=== PATIENT | male | born 1955 | race Two or more races ===

== ENCOUNTER 2020-05-26 07:53 | Inpatient (IN) | payer MEDICARE, MEDICAID ==
[~2020-05-26] VITALS: Ht 167.6 cm; Wt 56.0 kg
[2020-05-26] MEDS ORDERED: LIDOCAINE 2%HCL (LOCAL ANESTH.) INJ 20ML MDV ONE (08:36)
[2020-05-26] MEDS ORDERED: IODIXANOL 320MG/ML 100ML BTL IV ONE (08:37)
[2020-05-26] MEDS ORDERED: VERAPAMIL 2.5MG/ML INJ 2ML VIAL IV ONE (08:41)
[2020-05-26] MEDS ORDERED: ANGIOMAX 250 MG VIAL IV ONE (08:41)
[2020-05-26] MEDS ORDERED: HEPARIN SODIUM (PORCINE) 5000 UNITS/ML 1ML VIAL ONE (08:41)
[2020-05-26] MEDS ORDERED: SODIUM CHL 0.9% 0 ML ONE (08:42)
[2020-05-26] MEDS ORDERED: MIDAZOLAM HCL 1MG/1ML-2 ML VIAL ONE (08:42)
[2020-05-26] MEDS ORDERED: fentaNYL CITRATE 100 MCG/2 ML VL ONE (08:42)
[2020-05-26] MEDS ORDERED: hydrALAZINE HCL 20 MG/ML VL ONE (10:06)
[2020-05-26] MEDS ORDERED: hydrALAZINE HCL 20 MG/ML VL IV ONE (10:15)
[2020-05-26] MEDS ORDERED: MORPHINE SULF INJ 2 MG/ML SYRINGE 1ML IV PRN (10:30)
[2020-05-26] MEDS ORDERED: NITROGLYCERIN 0.4 MG SL TAB SL PRN (10:30)
[2020-05-26] MEDS ORDERED: ASPI-231 PO (12:29)
[2020-05-26] MEDS ORDERED: B-COTAB94 OR (12:29)
[2020-05-26] MEDS ORDERED: ATOR20TA PO (12:29)
[2020-05-26] MEDS ORDERED: CARV3.1240 PO (12:29)
[2020-05-26] MEDS ORDERED: SEVE800T8 PO (12:29)
[2020-05-26] MEDS ORDERED: SERT-160 PO (12:29)
[2020-05-26 12:49] VITALS: BP 181/76
[2020-05-26 13:27] VITALS: BP 181/76
[2020-05-26 13:35] LABS: Basophils # (auto) 0.1 10 ^3/uL (0-0.2); Eosinophils # (auto) 0.3 10 ^3/uL (0-0.8); Hemoglobin 13.2 g/dL (13.5-17.5); Monocytes # (auto) 0.7 10 ^3/uL (0-1.3); Nucleated Red Blood Cells % 0.1 %
[2020-05-26 13:37] LABS: Eosinophils % (auto) 3.5 % (0.0-7.0); Hematocrit 39.3 % (41.0-53.0); Lymphocytes # (auto) 1.7 10 ^3/uL (0.4-5.4); Lymphocytes % (auto) 22.5 % (10.0-50.0); Mean Corpuscular Hemoglobin 34.5 pg (28.0-32.0); Mean Corpuscular Hgb Conc. 33.6 g/dL (32.0-36.0); Mean Corpuscular Volume 102.7 fL (80.0-100.0); Monocytes % (auto) 9.2 % (0.0-12.0); Neutrophils # (auto) 4.7 10 ^3/uL (1.6-8.6); Neutrophils % (auto) 63.8 % (37.0-80.0); Platelet Count (auto) 109 10^3/uL (140-450); Red Blood Cells 3.82 10^6/uL (4.5-5.90); Red Cell Distribution Width 15.4 % (11.8-14.3); White Blood Cell 7.4 10^3/uL (4.4-10.8)
[2020-05-26 13:55] LABS: Albumin 3.7 g/dL (3.4-5.0); Calcium 7.7 mg/dL (8.5-10.1); Potassium 5.1 mmol/L (3.5-5.1)
[2020-05-26] MEDS: SODIUM ZIRCONIUM CYCL 10 GM PAK PO SCH ×2 (14:00→21:56)
[2020-05-26 14:06] LABS: BUN/Creatinine Ratio 7.4; Bilirubin, Total 0.4 mg/dL (0.2-1.0); Phosphorus 5.6 mg/dL (2.5-4.90); Total Protein 7.5 g/dL (6.4-8.2)
[2020-05-26 16:32] VITALS: BP 154/67
[2020-05-26] MEDS: amLODIPine BESYLATE 5 MG TAB PO SCH (18:01)
[2020-05-26] MEDS: SEVELAMER 800 MG TAB PO SCH (18:01)
[2020-05-26] MEDS: diphenhdrAMINE HCL 25 MG CAP PO PRN (18:02)
[2020-05-26 20:00] VITALS: BP 181/76
[2020-05-26 21:43] VITALS: BP 158/70
[2020-05-26] MEDS: CARVEDILOL 3.125 MG TAB PO SCH (21:57)
[2020-05-27 05:00] VITALS: BP 151/74
[2020-05-27] MEDS: SODIUM ZIRCONIUM CYCL 10 GM PAK PO SCH ×2 (06:47→14:22)
[2020-05-27] MEDS ORDERED: SODIUM CHL 0.9% 1000 ML BAG XX ONE (07:00)
[2020-05-27 08:15] VITALS: BP 165/64
[2020-05-27] MEDS: SEVELAMER 800 MG TAB PO SCH ×3 (08:19→17:49)
[2020-05-27 09:00] VITALS: BP 138/61
[2020-05-27] MEDS ORDERED: ASPirin-EC 81 mg tab PO SCH (10:00)
[2020-05-27] MEDS ORDERED: SERTRALINE HCL 50 MG TAB PO SCH (10:00)
[2020-05-27] MEDS ORDERED: ATORVASTATIN 20 MG TAB PO SCH (10:00)
[2020-05-27] MEDS: CARVEDILOL 3.125 MG TAB PO SCH (10:00)
[2020-05-27] MEDS: amLODIPine BESYLATE 5 MG TAB PO SCH (10:00)
[2020-05-27 12:53] VITALS: BP 137/55
[2020-05-27] MEDS: diphenhdrAMINE HCL 25 MG CAP PO PRN (14:22)
[2020-05-27 17:00] VITALS: BP 161/78
[2020-05-27 17:16] VITALS: BP 161/78
== END 2020-05-27 18:23 | disposition home or self-care (01) | DRG 286 ==
LOC: CATH 07:53 → TELE-WESTW 10:19
PROVIDERS: ADMIT Internal Medicine Cardiovascular Disease; ATTEND Nurse Practitioner
PROC: 4A023N7 Measurement of Cardiac Sampling and Pressure, Left Heart, Percutaneous Approach (ICD-10-PCS; principal; 2020-05-26)
PROC: B211YZZ Fluoroscopy of Multiple Coronary Arteries using Other Contrast (ICD-10-PCS; 2020-05-26)
DX: I25.110 Atherosclerotic heart disease of native coronary artery with unstable angina pectoris (principal); N18.6 End stage renal disease; I12.0 Hypertensive chronic kidney disease with stage 5 chronic kidney disease or end stage renal disease; E11.22 Type 2 diabetes mellitus with diabetic chronic kidney disease; E11.40 Type 2 diabetes mellitus with diabetic neuropathy, unspecified; E11.51 Type 2 diabetes mellitus with diabetic peripheral angiopathy without gangrene; E78.5 Hyperlipidemia, unspecified; E87.5 Hyperkalemia; Z83.3 Family history of diabetes mellitus; Z95.0 Presence of cardiac pacemaker; Z98.61 Coronary angioplasty status; Z99.2 Dependence on renal dialysis
CPT/HCPCS: 36415; 80053; 82962; 84100; 84132; 85025; 87081; 93458; 99152; 99153; G0378; J1642; J2250; Q9967